=== PATIENT | female | born 2000 | race African-American/Black ===

== ENCOUNTER 2021-07-20 23:45 | Emergency (ER) | payer MEDICAID ==
[~2021-07-20] VITALS: Ht 167.6 cm; Wt 66.5 kg
[2021-07-21 00:39] LABS: *AMPHETAMINES SCREEN URINE NEGATIVE (NEGATIVE); *BARBITURATES SCREEN URINE NEGATIVE (NEGATIVE); *BENZODIAZEPINES SCREEN URINE NEGATIVE (NEGATIVE); *COCAINE SCREEN URINE NEGATIVE (NEGATIVE); CANNABINOID URINE SCREEN NEGATIVE (NEGATIVE); METHADONE URINE SCREEN NEGATIVE (NEGATIVE); OPIATES URINE SCREEN NEGATIVE (NEGATIVE); PHENCYCLIDINE URINE SCREEN NEGATIVE (NEGATIVE)
[2021-07-21 00:43] LABS: CHLORIDE 109 mEq/L (98-107)
[2021-07-21 00:44] LABS: BASOPHILS % 0.5 % (0.0-2.0); EOSINOPHILS % 1.6 % (0.0-5.0); HEMATOCRIT. 41.6 % (36.0-48.0); HEMOGLOBIN. 14.1 g/dL (12.0-16.0); LYMPHOCYTES % 28.7 % (20.0-50.0); MEAN CORPUSCULAR HEMOGLOBIN 29.9 pg (28.0-32.0); MEAN CORPUSCULAR VOLUME 88.4 fL (81.0-99.0); MEAN PLATELET VOLUME 8.8 fl (7.4-10.4); MONOCYTES % 5.3 % (2.0-8.0); NEUTROPHILS % 63.9 % (40.0-76.0); PLATELET 206 x1000/uL (130-400); RED BLOOD CELL COUNT 4.71 mill/uL (4.2-5.4); RED CELL DISTRIBUTION WIDTH 12.8 % (11.6-14.6)
[2021-07-21 00:57] LABS: B-HCG QUANTITATIVE < 1 mIU/mL (<3)
[2021-07-21] MEDS ORDERED: KETOROLAC 15MG/ML VIAL IV ONE (01:00)
[2021-07-21 02:45] VITALS: BP 122/57
== END 2021-07-21 02:46 | disposition home or self-care (01) ==
LOC: ER 23:45
DX: R07.9 Chest pain, unspecified (principal)
CPT/HCPCS: 36415; 71045; 76700; 80053; 80305; 83690; 84484; 84702; 85025; 93005; 96374; 99285; J1885